=== PATIENT | female | born 1980 | race Caucasian/White ===

== ENCOUNTER 2016-09-26 22:45 | Emergency (ER) | payer OTHER ==
[~2016-09-26] VITALS: Ht 170.2 cm; Wt 65.8 kg
--- NOTE | 2016-09-27 | NUR ---
PT AMBULATED TO THE BATHROOM TO GIVE A URINE SAMPLE.
[2016-09-27 00:25] LABS: BILIRUBIN,URINE NEGATIVE (NEGATIVE); BLOOD, URINE 2+ Ery/uL (NEGATIVE); COLOR,URINE YELLOW (YELLOW); KETONES,URINE NEGATIVE (NEGATIVE); LEUKOCYTE ESTERASE ,URINE 1+ (NEGATIVE); NITRITE, URINE NEGATIVE (NEGATIVE); PROTEIN,URINE TRACE mg/dl (NEGATIVE); UGLUCOSE NEGATIVE (NEGATIVE)
[2016-09-27 00:28] LABS: APPEARANCE,URINE HAZY (CLEAR); PREGNANCY TEST URINE QUAL NEGATIVE (NEGATIVE)
[2016-09-27 00:39] LABS: ADD URINE CULTURE YES; BACTERIA,URINE Moderate /HPF (None Seen); WBC,URINE 40-50 /HPF (0-3)
[2016-09-27 00:40] LABS: SQUAMOUS EPITHELIAL CELL,UR Moderate /HPF (None Seen)
--- NOTE | 2016-09-27 00:58 | NUR ---
Patient discharged to home in stable condition. Written and verbal after care instructions given. Patient verbalizes understanding of instruction AND RX. PT AMBULATED OUT WITH A STEADY GAIT. VSS. PT CALLED HER BOYFRIEND TO PICK HER UP.
[2016-09-27 00:59] VITALS: BP 125/79
== END 2016-09-27 01:01 | disposition home or self-care (01) ==
LOC: ER 22:50
DX: N39.0 Urinary tract infection, site not specified (principal)
CPT/HCPCS: 81001; 84703; 87077; 87086; 87186; 99284; A4606; Z7610; 81000-TC

== ENCOUNTER 2022-03-23 12:13 | Emergency (ER) | payer OTHER ==
[~2022-03-23] VITALS: Ht 162.6 cm; Wt 56.7 kg
[2022-03-23 12:32] VITALS: BP 139/92
== END 2022-03-23 13:09 | disposition home or self-care (01) ==
LOC: ER 12:21
DX: M54.9 Dorsalgia, unspecified (principal)